=== PATIENT | female | born 1980 | race Caucasian/White ===

== ENCOUNTER → 2019-01-19 | Outpatient (CLI) | payer OTHER ==
[2019-01-19 16:28] LABS: BASO # 0.1 x10^3/uL (0.0-0.2); BASO % 1 % (0-3); EOS # 0.4 x10^3/uL (0.0-0.7); EOS % 6 % (0-3); HEMATOCRIT 38.3 % (36.0-47.0); HEMOGLOBIN 12.9 g/dL (12.0-15.5); LYMPH # 3.5 x10^3/uL (1.0-4.8); LYMPH % 49 % (24-48); MEAN CORPUSCULAR HEMOGLOBIN 32 pg (25-35); MEAN CORPUSCULAR HGB CONC 34 g/dL (31-37); MEAN CORPUSCULAR VOLUME 96 fL (79-100); MONO # 0.5 x10^3/uL (0.0-1.1); MONO % 7 % (0-9); NEUT # 2.7 x10^3uL (1.8-7.7); NEUT % 37 % (31-73); PLATELET COUNT 280 x10^3/uL (140-400); RED BLOOD COUNT 4.01 x10^6/uL (3.50-5.40); WHITE BLOOD COUNT 7.1 x10^3/uL (4.0-11.0)
[2019-01-19 16:38] LABS: AMPHETAMINE/METHAMPHETAMINE NEG (NEG); BARBITURATES NEG (NEG); BENZODIAZEPINES POS (NEG); CANNABINOIDS NEG (NEG); COCAINE NEG (NEG); METHADONE NEG (NEG); OPIATES NEG (NEG); PHENCYCLIDINE NEG (NEG)
[2019-01-19 16:45] LABS: ALBUMIN 3.9 g/dL (3.4-5.0); ALBUMIN/GLOBULIN RATIO 1.1 (1.0-1.7); CALCIUM 8.8 mg/dL (8.5-10.1); CREATININE 0.7 mg/dL (0.6-1.0); GFR 93.6; TOTAL BILIRUBIN 0.4 mg/dL (0.2-1.0); TOTAL PROTEIN 7.6 g/dL (6.4-8.2)
== END | disposition home or self-care (01) ==
LOC: LAB 15:18
PROVIDERS: ATTEND Psychiatry & Neurology Neurology
DX: G43.409 Hemiplegic migraine, not intractable, without status migrainosus (principal)
CPT/HCPCS: 36415; 80053; 80307; 84443; 85025

== ENCOUNTER → 2019-01-26 | Outpatient (CLI) | payer OTHER ==
[~2019-01-26] MED LIST: GADOBUTROL 7.5 MMOL/7.5 ML VIAL IV ONE
--- NOTE | 2019-01-26 17:48 | RAD ---
MRI of the Brain without and with Contrast 01/26/2019 Clinical History: Hemiplegic migraines.. Technique: Unenhanced T1-weighted sagittal and axial and FLAIR, T2-weighted, gradient echo and diffusion-weighted axial images of the brain were obtained. After the intravenous administration of 7 cc of Gadavist, enhanced T1-weighted axial and coronal images of the brain were obtained. Findings: The ventricles and sulci are within normal limits in size and configuration. No area of abnormal signal intensity is seen involving the brain parenchyma. No abnormal area of contrast enhancement is seen. No extra-axial fluid collection is noted. There is no MRI evidence of acute ischemia/infarction. Mild to moderate mucosal thickening is seen throughout the paranasal sinuses. There are minimal bilateral mastoid effusions. Normal flow voids are seen within the major vascular structures surrounding the brain parenchyma. Impression: 1. Negative MRI of the brain. 2. Paranasal sinus and mastoid disease. Electronically signed by: Jerome Bill MD (01/26/2019 5:46 PM) [id number]
--- NOTE | 2019-01-26 17:50 | RAD ---
MRA of the brain without contrast 01/26/2019 Clinical History: Migraines. Technique: Using 3-D time of flight techniques, a MRA of the major arterial structures surrounding the [place] was performed. Findings: Comparison is made to the patient's MRI of the brain performed concurrently with this examination. MRA images of the anterior and posterior circulations are within normal limits. No area of stenosis or occlusion is seen. No intracranial aneurysm is seen. Impression: Negative study. Electronically signed by: Jerome Bill MD (01/26/2019 5:47 PM) [id number]
== END | disposition home or self-care (01) ==
LOC: MRI 16:04
PROVIDERS: ATTEND Psychiatry & Neurology Neurology
DX: G43.409 Hemiplegic migraine, not intractable, without status migrainosus (principal); H74.8X3 Other specified disorders of middle ear and mastoid, bilateral; J32.9 Chronic sinusitis, unspecified; J34.89 Other specified disorders of nose and nasal sinuses; G25.9 Extrapyramidal and movement disorder, unspecified
CPT/HCPCS: 70544; 70553; A9585

== ENCOUNTER → 2019-02-02 | Outpatient (CLI) | payer OTHER ==
--- NOTE | 2019-02-06 12:23 | EEG ---
DATE OF SERVICE: 02/02/2019 EEG NUMBER: [id number]. OBJECTIVE: This is a 38-year-old female patient with history of abnormal movements. EEG was requested to rule out seizure. METHODS: Twenty electrodes were applied according to the international 10-20 electrode placement system. EKG monitoring, hyperventilation, intermittent photic stimulation, monopolar and bipolar montages are routinely utilized. The record was obtained on a digital system with video monitoring. FINDINGS: 1. Background: The patient was recorded in the awake and drowsy states. No actual sleep state was recorded. The overall background amplitude is 10-30 microvolts. A posterior dominant rhythm of 8-10 Hz is observed. 2. Abnormalities: No specific epileptiform discharge or electrographic seizure is seen. No focal or diffuse slowing. 3. Activation: Hyperventilation was performed with fair efforts and normal response. Intermittent photic stimulation was performed with photic driving. No specific epileptiform discharge or electrographic seizure induced by hyperventilation or intermittent photic stimulation. IMPRESSION: This EEG is a normal study for the awake and drowsy states. No actual sleep state was recorded. No focal, lateralizing, specific epileptiform discharge or electrographic seizure is seen. ERIKA PEREZ MD DR: HALLEY/richard JOB#: [id number] / [id number] TONI
== END | disposition home or self-care (01) ==
LOC: RT 08:13
PROVIDERS: ATTEND Psychiatry & Neurology Neurology
DX: G25.9 Extrapyramidal and movement disorder, unspecified (principal)
CPT/HCPCS: 95816

== ENCOUNTER → 2019-03-07 | Outpatient (CLI) | payer OTHER ==
--- NOTE | 2019-03-08 18:07 | EEG ---
DATE OF SERVICE: 03/08/2019 ELECTROENCEPHALOGRAM NUMBER: [id number]. OBJECTIVE: This is a 38-year-old female patient with history of abnormal movements or seizure like episodes. EEG was requested to evaluate seizure activity. This is a long-term video EEG monitoring with total video monitoring and EEG recording time of 24 hour 43 minutes from 03/07/2019 to 03/08/2019. METHODS: Twenty electrodes were applied according to the international 10-20 electrode placement system. EKG monitoring, hyperventilation, intermittent photic stimulation, monopolar and bipolar montages are routinely utilized. The record was obtained on a digital system with video monitoring. FINDINGS: 1. Background: The patient was recorded in the awake, drowsy, and sleep states. The overall background amplitude is 10-30 microvolts. A posterior dominant rhythm of 8-10 Hz is observed. A fast activity in the Beta frequency noted. 2. Abnormalities: No specific epileptiform discharge or electrographic seizure is seen. No focal or diffuse slowing. Fast activity in the Beta frequency noted. 3. Activation: Hyperventilation was performed with good efforts and normal response. Intermittent photic stimulation was performed with photic driving. No specific epileptiform discharge or electrographic seizure induced by hyperventilation or intermittent photic stimulation. IMPRESSION: This is a long-term video electroencephalogram study with total video monitoring and electroencephalogram recording time of 24 hour 43 minutes from 03/07/2019 to 03/08/2019. This long-term video electroencephalogram study is within the normal limits of the study for the awake, drowsy, and sleep states. No focal, lateralizing, specific epileptiform discharge, or electrographic seizure is seen. The fast activity in the Beta frequency noted. ERIKA PEREZ MD DR: HALLEY/richard JOB#: [id number] / [id number] TONI
== END | disposition home or self-care (01) ==
LOC: SLPLAB 06:17
PROVIDERS: ATTEND Psychiatry & Neurology Neurology
DX: G25.9 Extrapyramidal and movement disorder, unspecified (principal)
CPT/HCPCS: 95951

== ENCOUNTER → 2019-03-16 | Outpatient (CLI) | payer OTHER ==
[2019-03-16 16:08] LABS: PROTHROMBIN TIME PATIENT 14.7 SEC (11.7-14.0)
== END | disposition home or self-care (01) ==
LOC: LAB 15:37
PROVIDERS: ATTEND Psychiatry & Neurology Neurology
DX: G93.2 Benign intracranial hypertension (principal)
CPT/HCPCS: 36415; 85610

== ENCOUNTER → 2019-03-23 | Outpatient (CLI) | payer OTHER ==
[~2019-03-23] MED LIST changes: -GADOBUTROL 7.5 MMOL/7.5 ML VIAL IV ONE; +PROC10TA57 PO
[2019-03-23 09:51] LABS: PROTHROMBIN TIME PATIENT 11.8 SEC (11.7-14.0)
[2019-03-23 10:49] VITALS: BP 121/84
[2019-03-23 11:09] VITALS: BP 109/75
--- NOTE | 2019-03-23 11:10 | NUR ---
Patient and educated on post lumbar puncture care, both verbalized understanding and care sheet given. Vitals stable, no signs or symptoms of distress. Patient discharged home with , patient ambulated without any difficulties.
[2019-03-23 11:18] LABS: CSF PROTEIN 33.9 mg/dL (15.0-45.0)
[2019-03-23 11:40] LABS: CSF CLARITY CLEAR; CSF COLOR COLORLESS; CSF RBC COUNT 0 /cmm (Not Established); CSF WBC COUNT 1 /cmm (Not Established)
--- NOTE | 2019-03-23 12:11 | RAD ---
EXAM: FLUOROSCOPICALLY GUIDED LUMBAR PUNCTURE. HISTORY: Pseudotumor cerebri, headaches, hemiplegia. Fluoroscopically guided lumbar puncture is requested. FINDINGS: The procedure along with its risks and benefits were explained to the patient. They agreed to proceed. A timeout procedure was performed. The patient was placed prone on the fluoroscopy table. The L4-5 level was localized fluoroscopically. The overlying skin was sterilely prepped and infiltrated with 1% lidocaine for local anesthesia. Under fluoroscopic guidance, a 22-gauge spinal needle was advanced into the thecal sac. A fluoroscopic image was obtained. Fluoroscopy time 0.2 minutes. There was spontaneous return of clear cerebrospinal fluid. 10 mL were collected. Instrumentation was withdrawn and a sterile dressing placed. There were no immediate complications. Postprocedural instructions were provided. Opening pressures were measured at 20 cm water. Closing pressure was 17 cm water. IMPRESSION: 1. Successful fluoroscopically guided lumbar puncture. Electronically signed by: Marianela Bocanegra MD (03/23/2019 12:09 PM) [facility]
[2019-03-25 13:15] LABS: HERPES SIMPLEX TYPE 1 Negative (Negative); HERPES SIMPLEX TYPE 2 Negative (Negative)
[2019-04-04 05:14] LABS: VIRAL CULT FINAL No virus isolated. (.)
== END ==
LOC: RAD 10:01
PROVIDERS: ATTEND Psychiatry & Neurology Neurology
DX: G43.409 Hemiplegic migraine, not intractable, without status migrainosus (principal); G93.2 Benign intracranial hypertension; G81.90 Hemiplegia, unspecified affecting unspecified side
CPT/HCPCS: 36415; 62270; 77003; 82945; 84157; 85610; 87071; 87075; 87102; 87252; 87529; 89051